=== PATIENT | female | born 1950 | race Caucasian/White ===

== ENCOUNTER → 2020-08-01 | Outpatient (CLI) | payer OTHER | LOC: SJCVC 13:04 | PROVIDERS: ATTEND Internal Medicine Cardiovascular Disease | DX: I49.3 Ventricular premature depolarization (principal); I10 Essential (primary) hypertension; E78.00 Pure hypercholesterolemia, unspecified; F41.9 Anxiety disorder, unspecified; R00.2 Palpitations ==

== ENCOUNTER → 2021-03-06 | Outpatient (CLI) | payer OTHER | LOC: SJCVCIMAG 07:21 | PROVIDERS: ATTEND Internal Medicine Cardiovascular Disease | DX: I10 Essential (primary) hypertension (principal); E78.5 Hyperlipidemia, unspecified; I49.3 Ventricular premature depolarization ==

== ENCOUNTER → 2021-03-06 | Outpatient (CLI) | payer OTHER | LOC: CAT 12:54 | PROVIDERS: ATTEND Internal Medicine Cardiovascular Disease | DX: Z13.6 Encounter for screening for cardiovascular disorders (principal) ==